=== PATIENT | female | born 1935 | race Caucasian/White ===

== ENCOUNTER 2018-08-01 17:05 | Emergency (ER) | payer MEDICARE ==
[~2018-08-01] VITALS: Ht 177.8 cm; Wt 98.9 kg
--- OUTSIDE RECORDS SUMMARY | 2018-08-01 17:09 | XMS REPORT ---
Author Author [facility] Address Unknown Phone Unavailable Care Team Providers Care Wirer Maintenance Name Role Phone Sigrid MIRAMONTES Unavailable Unavailable Problems This patient has no known problems. Allergies, Adverse Reactions, Alerts This patient has no known allergies or adverse reactions. Medications This patient has no known medications. Results Test Description Test Time Test Comments Text Results Atomic Results Result Comments CT BRAIN WO [facility] [address] [address] Patient Name: VONNIE HIGGINS MR #: [id number] : 1935 Age/Sex: 81/F Req #: [id number] Adm Physician: Ordered by: ZURDO GOODWIN BAND DIRECTOR Report #: [id number] Location: ER Room/Bed: Procedure: [id number] CT/CT BRAIN WO Exam Date: Exam Time: REPORT STATUS: Signed History:Weakness Comparison studies: Technique: Axial images were obtained from the skull base to the vertex. Coronal and sagittal images reconstructed from the axial data. Intravenous contrast: None Findings: Scalp/skull: No abnormalities. Extra-axial spaces: No masses. No fluid collections. Brain sulci: Mildly prominent. Ventricles: Moderately dilated but no acute hydrocephalus. Parenchyma: Ill defined confluent hypodensities in the supratentorial white matter are small vessel ischemic changes. No masses, hemorrhage, acute or chronic cortical vascular insults. Sellar/suprasellar region: No abnormalities. Craniocervical junction: Patent foramen magnum. No Chiari one malformation. Incidental findings: Atherosclerotic calcifications in the carotid siphons and vertebral arteries. Bilateral drusen in the partially visualized orbits. Impression: No acute abnormalities. Chronic findings: 1. Mild generalized volume loss 2. Moderate dilatation of the ventricles but no acute hydrocephalus. 3. Moderate supratentorial white matter small vessel ischemic changes. Signed by: Dr. Jean Paul Lo M.D. on 12/11/2016 5:37 PM Dictated By: JEAN PAUL LO MD, MD 36 Transcribed By: LESLEY on 12/11/161736 COPY TO: ZURDO GOODWIN NP CHEST SINGLE (PORTABLE) [place] [address] Patient Name: VONNIE HIGGINS MR #: [id number] : 1935 Age/Sex: 81/F Req #: [id number] Adm Physician: Ordered by: ZURDO GOODWIN BAND DIRECTOR Report #: [id number] Location: ER Room/Bed: Procedure: [id number] DX/CHEST SINGLE (PORTABLE) Exam Date: 12/11/16 Exam Time: 1610 REPORT STATUS: Signed PROCEDURE: A single AP view of the chest. COMPARISON: [facility], , CHEST 2 VIEWS, 05/04/2007, 17:40. [facility], , CHEST SINGLE, 12/01/2006, 13:27. INDICATIONS: STROKE FINDINGS: Lines/tubes: None. Lungs: The lungs are mildly hypoinflated and grossly clear. There is no evidence of pneumonia or pulmonary edema. Pleura: There is no pleural effusion or pneumothorax. Heart and mediastinum: The heart and the mediastinum are unremarkable. Bones: No acute bony abnormality. IMPRESSION: 1. No acute cardiopulmonary abnormalities. Dariusz Olivia M.D. Dictated by: Dariusz Olivia M.D. on 12/11/2016 at 16:45 Electronically approved by: Dariusz Olivia M.D. on 12/11/2016 at 16:45 Dictated By: DARIUSZ OLIVIA MD 44 Transcribed By: PATRICIA on 12/11/161644 COPY TO: ZURDO GOODWIN NP
--- NOTE | 2018-08-01 19:04 | Diagnostic Imaging Report ---
ADDENDUM #1 Moderate ventricular dilatation as mentioned in the report of prior CT brain from 12/11/2016. No acute hydrocephalus. I have reviewed the images and otherwise agree with findings in the preliminary report. Signed by: Dr. Earlene Valentine M.D. on 08/01/2018 8:41 PM ORIGINAL REPORT Exam: Noncontrast Head CT History: Subacute fall Comparison studies: None available at time of dictation Technique: Axial images were obtained from the skull base to the vertex. Coronal and sagittal reconstructions obtained from the axial data. Dose modulation, iterative reconstruction, and/or weight based adjustment of the mA/kV was utilized to reduce the radiation dose to as low as reasonably achievable. Findings: Scalp/skull: No abnormalities. No fractures, blastic or lytic lesions. Extra-axial spaces: No masses. No fluid collections. Brain sulci: Mildly prominent. Ventricles: Mildly prominent. No hydrocephalus. Parenchyma: Moderate subcortical and periventricular white matter hypodensities likely represent sequela microvascular ischemic angiopathy.. No masses, hemorrhage, acute or chronic cortical vascular insults. Sellar/suprasellar region: No abnormalities Craniocervical junction: Patent foramen magnum. No Chiari one malformation. Other findings: Mild mucosal thickening in the visualized right maxillary sinus. Bilateral cataract surgery. Nonspecific calcifications of the bilateral optic papilla. IMPRESSION: No acute abnormalities. Chronic findings: Moderate white matter microvascular ischemic changes Mild generalized volume loss Report dictated by neuroradiology fellow. Final read to follow. Signed by: Hernán Luna MD on 08/01/2018 7:00 PM
--- NOTE | 2018-08-01 19:07 | Diagnostic Imaging Report ---
ADDENDUM #1 Ligament, spinal cord and or vascular abnormalities cannot be excluded on the basis of this examination. I have reviewed the images and agree with findings in the preliminary report. Signed by: Dr. Earlene Valentine M.D. on 08/01/2018 8:46 PM ORIGINAL REPORT History: Subacute fall Comparison studies: None Technique: Axial images were obtained through the cervical region. Coronal and sagittal images reconstructed from the axial data. Dose modulation, iterative reconstruction, and/or weight based adjustment of the mA/kV was utilized to reduce the radiation dose to as low as reasonably achievable. Intravenous contrast: None Findings: Airway: Patent. Atlantoaxial articulation: Intact Alignment: Normal lordosis No scoliosis. Cervicomedullary junction: No abnormalities. Patent foramen magnum. Soft tissues: No gross abnormalities. Vertebrae: No fractures, neoplasm or infection. 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 IMPRESSION: No acute injury or fracture. Signed by: Hernán Luna MD on 08/01/2018 7:04 PM
[2018-08-01 19:33] VITALS: BP 155/71
--- NOTE | 2018-08-01 21:48 | NUR ---
PT LEFT ER WITHOUT DC PAPERWORK AND RX. PT CALLED AT HOME. INFORMED THAT LEFT S ER PAPERWORK AND RX. 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
== END 2018-08-01 19:50 | disposition home or self-care (01) ==
LOC: ER 17:05
DX: S06.0X0A Concussion without loss of consciousness, initial encounter (principal); S00.83XA Contusion of other part of head, initial encounter; R51 Headache; W18.30XA Fall on same level, unspecified, initial encounter; Y93.01 Activity, walking, marching and hiking; Y92.89 Other specified places as the place of occurrence of the external cause; E78.5 Hyperlipidemia, unspecified
CPT/HCPCS: 70450; 72125; 99283

== ENCOUNTER 2020-10-30 14:02 | Emergency (ER) | payer MEDICARE ==
[~2020-10-30] VITALS: Ht 177.8 cm; Wt 88.5 kg
== END 2020-10-30 14:17 | disposition home or self-care (01) ==
LOC: ER 14:12
DX: U07.1 COVID-19 (principal)
CPT/HCPCS: 99282

== ENCOUNTER 2021-03-17 00:44 | Emergency (ER) | payer MEDICARE ==
[~2021-03-17] VITALS: Ht 177.8 cm; Wt 88.5 kg
[2021-03-17] MEDS ORDERED: ONDANSETRON HCL INJ 2MG/ML 2ML 2 MG/ML VIAL IV STA (00:56)
[2021-03-17] MEDS ORDERED: SODIUM CHLORIDE 0.9% 1000ML 1,000 ML IV STA (00:56)
[2021-03-17] MEDS ORDERED: HYDRALAZINE HCL 20 MG/ML VIAL IV STA (01:23)
[2021-03-17 02:05] LABS: BASOPHILS % 0.4 % (0.0-1.0); EOSINOPHILS # (AUTO) 0.1 (0.0-0.4); EOSINOPHILS % 0.5 % (0.0-6.0); HEMATOCRIT 40.2 % (34.2-44.1); LYMPHOCYTES # (AUTO) 1.9 (1.0-3.2); LYMPHOCYTES % 17.5 % (18.0-39.1); MEAN CORPUSCULAR HEMOGLOBIN 29.7 pg (28-32); MEAN CORPUSCULAR HGB CONC 32.3 g/dL (31-35); MEAN CORPUSCULAR VOLUME 91.8 fL (81-99); MONOCYTES # (AUTO) 0.7 (0.2-0.8); MONOCYTES % 6.5 % (4.4-11.3); NEUTROPHILS % 74.6 % (38.7-80.0); PLATELET COUNT 201 x10e3/uL (140-360); RED BLOOD COUNT 4.38 x10e6/uL (3.6-5.1); RED CELL DISTRIBUTION WIDTH 13.3 % (11.7-14.4)
[2021-03-17 02:15] LABS: INR 1.05; PROTHROMBIN TIME 14.5 seconds (11.9-14.5)
[2021-03-17 02:16] LABS: PARTIAL THROMBOPLASTIN TIME 30.2 seconds (23.8-35.5)
[2021-03-17 02:21] LABS: CLARITY,URINE CLOUDY (CLEAR); COLOR,URINE YELLOW (YELLOW)
[2021-03-17 02:22] LABS: BACTERIA,URINE MANY /HPF; EPITHELIAL CELLS,URINE FEW /LPF; KETONES,URINE 2+ (NEGATIVE); LEUKOCYTE ESTERASE ,URINE TRACE (NEGATIVE); MUCUS,URINE FEW (RARE); NITRITE,URINE NEGATIVE (NEGATIVE); PROTEIN,URINE DIPSTICK >=300 (NEGATIVE); RBC,URINE >50 /HPF (0-5); RENAL EPITHELIAL CELLS,URINE MODERATE; TRANSITIONAL EPI CELLS,URINE FEW; URINE UROBILINOGEN 0.2 mg/dL (0.2 - 1); WBC,URINE (MAN) >50 /HPF (0-5)
[2021-03-17 02:26] LABS: ALBUMIN 4.1 g/dL (3.5-5.0); ALBUMIN/GLOBULIN RATIO 1.2 (0.8-2.0); ANION GAP 17.6 mmol/L (8-16); CALCIUM 10.3 mg/dL (8.4-10.2); CREATININE, SERUM 1.36 mg/dL (0.57-1.11); POTASSIUM 3.6 mmol/L (3.5-5.1)
[2021-03-17] MEDS ORDERED: CEFTRIAXONE 1 GM in SODIUM CHLORIDE 0.9% 50ML 50 ML IV ONE (02:30)
[2021-03-17] MEDS ORDERED: PROMETHAZINE 25MG/ NS 50ML (IV) IV ONE (03:45)
[2021-03-17 04:52] LABS: CREATINE KINASE MB 2.7 ng/mL (0-5.0)
[2021-03-17] MEDS ORDERED: CEPHALEXIN500 MG PO (04:53)
[2021-03-17] MEDS ORDERED: DICYCLOMINE HCL10 MG PO (04:53)
[2021-03-17] MEDS ORDERED: ONDANSETRON ODT4 MG PO (04:53)
[2021-03-17 05:00] VITALS: BP 170/89
== END 2021-03-17 05:00 | disposition home or self-care (01) ==
LOC: ER 00:56
DX: K80.20 Calculus of gallbladder without cholecystitis without obstruction (principal); N39.0 Urinary tract infection, site not specified; I10 Essential (primary) hypertension; E03.9 Hypothyroidism, unspecified; K21.9 Gastro-esophageal reflux disease without esophagitis; E78.5 Hyperlipidemia, unspecified; Z88.5 Allergy status to narcotic agent; Z88.0 Allergy status to penicillin
CPT/HCPCS: 36415; 71045; 74176; 80053; 81001; 82550; 82553; 83690; 83880; 84484; 85025; 85610; 85730; 93005; 99284; C9113; J0360; J0696; J2405; J2550; J7030

== ENCOUNTER 2021-03-18 13:02 | Emergency (ER) | payer MEDICARE ==
[~2021-03-18] VITALS: Ht 177.8 cm; Wt 88.5 kg
[~2021-03-18 13:02] MED LIST: CEPHALEXIN500 MG PO; DICYCLOMINE HCL10 MG PO; ONDANSETRON ODT4 MG PO
== END 2021-03-18 13:36 | disposition home or self-care (01) ==
LOC: ER 13:16
DX: N39.0 Urinary tract infection, site not specified (principal); I10 Essential (primary) hypertension; E03.9 Hypothyroidism, unspecified; Z88.0 Allergy status to penicillin; Z88.6 Allergy status to analgesic agent
CPT/HCPCS: 99282

== ENCOUNTER 2022-08-15 15:53 | Emergency (ER) | payer MEDICARE, OTHER ==
[~2022-08-15] VITALS: Ht 177.8 cm; Wt 83.9 kg
[2022-08-15] MEDS ORDERED: KETOROLAC TROMETHAMINE 30 MG/ML VIAL IV STA (17:00)
[2022-08-15] MEDS ORDERED: LIDOCAINE 4% PATCH TP ONE (17:00)
[2022-08-15] MEDS ORDERED: ACETAMINOPHEN 325 MG TAB PO ONE (17:00)
[2022-08-15 20:36] VITALS: O2SAT 99
== END 2022-08-15 20:47 | disposition home or self-care (01) ==
LOC: ER 16:20
DX: R10.2 Pelvic and perineal pain (principal); M54.50 Low back pain, unspecified; W18.39XA Other fall on same level, initial encounter; Y93.01 Activity, walking, marching and hiking; Y92.89 Other specified places as the place of occurrence of the external cause; I10 Essential (primary) hypertension; E78.5 Hyperlipidemia, unspecified; E03.9 Hypothyroidism, unspecified; K21.9 Gastro-esophageal reflux disease without esophagitis; R94.31 Abnormal electrocardiogram [ECG] [EKG]
CPT/HCPCS: 72131; 72192; 93005; 99284; J1885

== ENCOUNTER 2023-03-16 16:40 | Emergency (ER) | payer MEDICARE ==
[~2023-03-16] VITALS: Ht 177.8 cm; Wt 72.6 kg
[~2023-03-16 16:40] MED LIST changes: +CEFUROXIME500 MG PO; +PYRIDIUM200 MG PO
[2023-03-16 20:08] VITALS: O2SAT 98
[2023-03-16] MEDS ORDERED: ULTRAM 50MG50 MG PO ×2 (20:08→20:11)
== END 2023-03-16 20:10 | disposition home or self-care (01) ==
LOC: ER 17:41
DX: S00.83XA Contusion of other part of head, initial encounter (principal); M25.551 Pain in right hip; W20.8XXA Other cause of strike by thrown, projected or falling object, initial encounter; Y92.89 Other specified places as the place of occurrence of the external cause; I10 Essential (primary) hypertension; E11.9 Type 2 diabetes mellitus without complications; E78.5 Hyperlipidemia, unspecified; K21.9 Gastro-esophageal reflux disease without esophagitis; E03.9 Hypothyroidism, unspecified
CPT/HCPCS: 70450; 72125; 99283